=== PATIENT | male | born 1940 | race African-American/Black ===

== ENCOUNTER 2019-11-02 12:13 | Emergency (ER) | payer MEDICARE, OTHER ==
[~2019-11-02] VITALS: Ht 175.3 cm; Wt 76.7 kg
[2019-11-02 12:30] VITALS: BP 124/77
[2019-11-02] MEDS ORDERED: cefTRIAXone SOD 1,000 MG VL IM ONE (14:45)
[2019-11-02] MEDS ORDERED: LIDOCAINE 1% HCL (LOCAL ANESTH.) INJ 20ML MDV ONE (15:00)
== END 2019-11-02 15:18 | disposition home or self-care (01) ==
LOC: ER 12:13
DX: J03.90 Acute tonsillitis, unspecified (principal); I10 Essential (primary) hypertension
CPT/HCPCS: 96372; 99283; J0696; J2001